=== PATIENT | female | born 1955 | race Caucasian/White ===

== ENCOUNTER → 2023-08-04 | Outpatient (CLI) | payer MEDICARE, OTHER ==
[2023-08-04 14:09] VITALS: BP 137/75; PULSE 65; RESP 16; TEMP 98.1; BMI 34.9
--- NOTE | 2023-08-04 14:46 | P.BASOAP ---
Subjective Progress Note Date: 08/04/23 Principal diagnosis: Morbid obesity 67-year-old female here for complaints of dysphagia. Patient had a lap band approximately 20 years ago. Says she has not been seen in over 10 years. She thought her band was mostly empty. Over the last 4 to 6 weeks has had increasing dysphagia to both liquids and solids. Mild soreness when swallowing. Objective - Vital Signs Vital signs: Vital Signs Temp 98.1 F 08/04/23 13:42 Pulse 65 08/04/23 13:42 Resp 16 08/04/23 13:42 BP 137/75 08/04/23 13:42 Pulse Ox FiO2 Intake & Output 08/03/23 08/04/23 08/04/23 18:59 06:59 18:59 Weight 78.471 kg - Exam Abdomen: Soft, nontender, nondistended Assessment/Plan (1) Morbid obesity Narrative/Plan: 67-year-old female with worsening dysphagia. Options reviewed with patient. Will try aspirating the patient's band and then sending for esophagram. The patient's lap band port was palpated. The site was aseptically prepped. The Arciniega needle was advanced into the port. A total of 2.9 ml of fluid was removed. Band is now empty. Pressure was held and a sterile dressing was applied. Will check esophagram. Further recommendations to follow. Plan: Date: 08/04/23 Initial Weight: 78.471 kg Initial BMI: 34.9 Current Weight: 78.471 kg Current BMI: 34.9 Type of Surgery: Adjustable Gastric Banding Total Volume in Band: Previous Volume: Volume Removed: Volume Added: Band Size:
--- NOTE | 2023-08-04 16:03 | FL ---
SINGLE CONTRAST BARIUM SWALLOW: CLINICAL HISTORY: 67-year-old female R13.10, dysphagia. Patient with long standing lap band with tro uble swallowing since April. Fill removed today in clinic. TECHNIQUE: Single contrast exam performed with thin barium. Total fluoroscopy time: 1 minute 1 second Total images: 19 DOSE AREA PRODUCT (DAP) UGY*M,MGY*CM: 326 FINDINGS: The patient swallowed oral contrast without difficulty or delay. Esophageal peristalsis and motility are within normal limits. Laparoscopic banding device is noted to be in place and is appropriately positioned in the proximal stomach, just below Gastroesophageal junction. There is good flow of cont rast along the course of the lap band with mild restriction. IMPRESSION: No evidence lap band prolapse or obstruction. Only mild restriction seen across the lap band.
== END ==
LOC: BARWHC3 13:00
PROVIDERS: ATTEND Surgery
DX: E66.01 Morbid (severe) obesity due to excess calories (principal); R13.10 Dysphagia, unspecified; Z98.84 Bariatric surgery status; Z68.34 Body mass index [BMI] 34.0-34.9, adult; Z88.7 Allergy status to serum and vaccine; Z46.51 Encounter for fitting and adjustment of gastric lap band
CPT/HCPCS: 43999; 74220

== ENCOUNTER → 2023-12-22 | Outpatient (CLI) | payer MEDICARE ==
[2023-12-22 13:30] VITALS: BP 147/82; PULSE 58; RESP 16; TEMP 98; BMI 37.3
--- NOTE | 2023-12-22 15:01 | P.BASOAP ---
Subjective Progress Note Date: 12/22/23 Principal diagnosis: Morbid obesity Patient returns for recheck. She was last seen on 08/03 of this year. At the time patient had dysphagia and her band was emptied. 2.9 cc was removed. Upper GI after that showed mild hesitancy at the band site. Since that time she has felt fine. She has gained some weight. 12 pounds. No dysphagia or nausea. Would like fluid added back to the band. Objective - Vital Signs Vital signs: Vital Signs Temp 98 F 12/22/23 13:27 Pulse 58 L 12/22/23 13:27 Resp 16 12/22/23 13:27 BP 147/82 12/22/23 13:27 Pulse Ox FiO2 Intake & Output 12/21/23 12/22/23 12/22/23 18:59 06:59 18:59 Weight 83.915 kg - Exam Abdomen: Soft, nontender, nondistended Assessment/Plan (1) Morbid obesity Narrative/Plan: 68-year-old female with history of lap band. Requesting band to be filled. Will add 1.5 cc today. Was previously tight at 2.9 cc. The patient's lap band port was palpated. The site was aseptically prepped. The Arciniega needle was advanced into the port. A total of 1.5 ml of fluid was added for a total of 2.9 cc. Pressure was held and a sterile dressing was applied. Plan: Date: 12/22/23 Initial Weight: 78.471 kg Initial BMI: 34.9 Current Weight: 83.915 kg Current BMI: 37.3 Type of Surgery: Adjustable Gastric Banding Total Volume in Band: 0 Previous Volume: Volume Removed: Volume Added: Band Size:
== END ==
LOC: BARWHC3 13:09
PROVIDERS: ATTEND Surgery
DX: E66.01 Morbid (severe) obesity due to excess calories (principal); Z68.37 Body mass index [BMI] 37.0-37.9, adult; Z46.51 Encounter for fitting and adjustment of gastric lap band; Z88.7 Allergy status to serum and vaccine
CPT/HCPCS: 43999